=== PATIENT | male | born 1980 | race Caucasian/White ===

== ENCOUNTER 2020-08-02 08:17 | Emergency (ER) | payer BC, OTHER ==
[~2020-08-02] VITALS: Ht 175.3 cm; Wt 74.8 kg
[2020-08-02] MEDS ORDERED: FLEXERIL PO (09:25)
[2020-08-02 09:59] VITALS: BP 122/80
== END 2020-08-02 09:58 | disposition home or self-care (01) ==
LOC: ER 08:17
DX: M54.2 Cervicalgia (principal); M54.6 Pain in thoracic spine; R20.2 Paresthesia of skin; H53.8 Other visual disturbances; F17.210 Nicotine dependence, cigarettes, uncomplicated; Z88.8 Allergy status to other drugs, medicaments and biological substances; Z91.011 Allergy to milk products